=== PATIENT | female | born 1995 | race Caucasian/White ===

== ENCOUNTER 2024-10-18 07:17 | Day surgery (SDC) | payer BC ==
[~2024-10-18] VITALS: Ht 157.5 cm; Wt 54.0 kg
[~2024-10-18 07:17] MED LIST: ACETAMINOPHEN 1000MG/100ML IV BAG As Ordered ONE; GLYCOPYRROLATE INJ 0.2 MG/ML 2 ML VIAL As Ordered ONE; KETOROLAC 60MG 2ML VIAL As Ordered ONE; LIDOCAINE 2% 100MG/5ML SDV (FOR ANES.) As Ordered ONE; MIDAZOLAM INJ 2MG/2ML VIAL As Ordered ONE; ONDANSETRON 4MG 2ML VIAL As Ordered ONE; fentaNYL 100 MCG/2 ML INJECTION As Ordered ONE; propofoL 200 MG/20 ML VIAL As Ordered ONE
[2024-10-18] MEDS: LR 1,000 ML IV SCH (07:45)
[2024-10-18] MEDS: ceFAZolin SOD 2 GM IV ONCE IV ONE (08:40)
[2024-10-18] MEDS: LIDOCAINE 1% MDV 20ML VIAL As Ordered ONE (08:48)
[2024-10-18] MEDS ORDERED: METOCLOPRAMIDE INJ 10MG/2ML VIAL As Ordered ONE (08:51)
[2024-10-18] MEDS ORDERED: ePHEDrine SULFATE 25 MG/5 ML(5MG/ML) SYRINGE As Ordered ONE (09:38)
[2024-10-18] MEDS ORDERED: MORPHINE 2 MG/ML 1ML VIAL IV PRN (10:00)
[2024-10-18] MEDS ORDERED: ONDANSETRON 4MG 2ML VIAL IV PRN (10:00)
[2024-10-18] MEDS ORDERED: oxyCODONE 5MG TAB PO PRN (10:00)
[2024-10-18] MEDS ORDERED: fentaNYL 100 MCG/2 ML INJECTION IV PRN (10:00)
[2024-10-18 11:30] VITALS: BP 120/68; TEMP 98.8; O2SAT 100
== END 2024-10-18 11:42 | disposition home or self-care (01) ==
LOC: M SDC 07:17
PROVIDERS: ATTEND Podiatrist Foot & Ankle Surgery
DX: M20.12 Hallux valgus (acquired), left foot (principal); M21.612 Bunion of left foot; Z88.0 Allergy status to penicillin
CPT/HCPCS: 28299; 76000; 81025; 97116; 97161; C1713; J0131; J0665; J0690; J1100; J1596; J1885; J2250; J2405; J2765; J3010